=== PATIENT | female | born 1970 | race Two or more races ===

== ENCOUNTER 2023-07-17 20:54 | Emergency (ER) | payer OTHER ==
[2023-07-17 21:04] VITALS: BP 145/72; PULSE 76; RESP 20; TEMP 97.6; BMI 28.3
[2023-07-17] MEDS ORDERED: ACETAMINOPHEN 500 MG TABLET (FP) PO ONE (22:16)
[2023-07-17] MEDS ORDERED: predniSONE 20 MG TABLET (UD) PO ONE (22:16)
[2023-07-17] MEDS ORDERED: predniSONE 20 MG TABLET (UD) ONE (22:17)
[2023-07-17] MEDS ORDERED: ACETAMINOPHEN 500 MG TABLET (FP) ONE (22:17)
== END 2023-07-17 22:26 | disposition home or self-care (01) ==
LOC: JERFT 20:54
DX: M25.571 Pain in right ankle and joints of right foot (principal); M25.561 Pain in right knee; M25.562 Pain in left knee; G89.29 Other chronic pain; W10.8XXA Fall (on) (from) other stairs and steps, initial encounter; X50.1XXA Overexertion from prolonged static or awkward postures, initial encounter
CPT/HCPCS: 73562-TC-LT-FY; 73562-TC-RT-FY; 73610-TC-RT-FY; 73630-TC-RT-FY; 99283-25